=== PATIENT | male | born 1935 | race Caucasian/White ===

== ENCOUNTER 2017-07-30 00:54 | Inpatient (IN) | payer OTHER, BC ==
--- NOTE | 2017-07-30 01:10 | EDPHY ---
H & P Stated Complaint: cough and weakness, fall tonight out of bed unable to get up HPI/ROS: Chief Complaint: Nausea, malaise, confusion HPI: 82-year-old male with a history of hypertension called EMS for a lift assist. On EMS arrival the patient is noted to be complaining of nausea malaise. He was unable to stand on his own. He has had a nonproductive cough for the last week. He was seen by fire department yesterday on from his home with no complaints. Denies hitting his head. States that she remembers early over falling out of bed any could not get up. Patient is mildly confused and is not oriented to date at this time, he thinks this May 2014. No headache. No weakness. Some nausea but no vomiting. No diarrhea. ROS: 10 point Review of Systems is negative except as noted in the HPI. PMH: Hypertension Social History: No smoking, no alcohol, no recreational drug use Family History: non-contributory Physical Exam: Gen: Awake, Alert, mildly disoriented HEENT: Nose: no rhinorrhea Eyes: PERRLA, EOMI Mouth: Moist mucosa dry mucosa Neck: Supple, no JVD Chest: nontender, decreased air movement no focal rhonchi Heart: S1, S2 normal, no murmur, tachycardic Abd: Soft, non-tender, no guarding Back: no CVA tenderness, no midline tenderness Ext: no edema, non-tender Skin: no rash Neuro: CN II-XII intact, Sensation grossly intact, Strength 5/5 in bilateral upper and lower extremities - Medical/Surgical History Hx Asthma: No Hx Chronic Respiratory Disease: No Hx Diabetes: No Hx Cardiac Disease: Yes Hx Renal Disease: No Hx Cirrhosis: No Hx Alcoholism: No Hx HIV/AIDS: No Hx Splenectomy or Spleen Trauma: No Other PMH: HTN, dementia - Social History Smoking Status: Never smoked Constitutional: Initial Vital Signs Temperature (C) 37.4 C 07/30/17 01:04 Heart Rate 114 H 07/30/17 01:04 Respiratory Rate 18 07/30/17 01:04 Blood Pressure 213/102 H 07/30/17 01:04 O2 Sat (%) 92 07/30/17 01:04 O2 Delivery Mode Room Air Allergies/Adverse Reactions: Penicillins Allergy (Verified 10/03/09 19:55) Home Medications: Medication Instructions Recorded Cerefolin Caplet 07/30/17 Donepezil HCl 07/30/17 Lisinopril 07/30/17 Memantine HCl 07/30/17 Vayacog Capsules 07/30/17 Medical Decision Making - Diagnostics Imaging Results: CT scan of the brain shows no acute process per Dr. Rivera, chest x-ray is lid but shows no obvious gross focal infiltrates. Imaging: Discussed imaging studies w/ house calls nurse practitioner Radiologist, I viewed and interpreted images myself ED Course/Re-evaluation: 82-year-old male with new Mayur weakness small able to stand status post falling out of bed. He is mildly confused. Initially very hypertensive. CT scan of the brain is negative. He has no leukocytosis but does have a left shift. Lactate is 1.5. Patient is positive for influenza A. Chest x-ray is limited because he is unable to stand. Case discussed with , hospitalist. She will admit for further care. - Data Points Laboratory Results: Laboratory Results 07/30/17 00:05 07/30/17 00:05 07/30/17 07/30/17 07/30/17 01:16 01:16 00:05 WBC RBC Hgb Hct MCV MCH MCHC RDW Plt Count MPV Neut % (Auto) Lymph % (Auto) [place] % (Auto) Eos % (Auto) Baso % (Auto) Nucleat RBC Rel Count Absolute Neuts (auto) Absolute Lymphs (auto) Absolute Monos (auto) Absolute Eos (auto) Absolute Basos (auto) Absolute Nucleated RBC Immature Gran % Immature Gran # PT 14.3 SEC SEC (12.0-15.0) INR 1.09 (0.83-1.16) APTT 25.2 SEC SEC (23.0-38.0) VBG Lactic Acid 1.5 mmol/L mmol/L (0.7-2.1) Sodium Potassium Chloride Carbon Dioxide Anion Gap BUN Creatinine Estimated GFR Glucose Calcium Total Bilirubin Nasal Influenza A PCR FLU A DETECTED (NEGATIVE) Nasal Influenza B PCR NEGATIVE FOR FLU B (NEGATIVE) 07/30/17 07/30/17 00:05 00:05 WBC 6.64 10^3/uL 10^3/uL (3.80-9.50) RBC 4.66 10^6/uL 10^6/uL (4.40-6.38) Hgb 14.8 g/dL g/dL (13.7-17.5) Hct 42.4 % % (40.0-51.0) MCV 91.0 fL fL (81.5-99.8) MCH 31.8 pg pg (27.9-34.1) MCHC 34.9 g/dL g/dL (32.4-36.7) RDW 12.9 % % (11.5-15.2) Plt Count 116 10^3/uL L 10^3/uL (150-400) MPV 8.8 fL fL (8.7-11.7) Neut % (Auto) 83.8 % H % (39.3-74.2) Lymph % (Auto) 7.4 % L % (15.0-45.0) [place] % (Auto) 6.0 % % (4.5-13.0) Eos % (Auto) 1.7 % % (0.6-7.6) Baso % (Auto) 0.3 % % (0.3-1.7) Nucleat RBC Rel Count 0.0 % % (0.0-0.2) Absolute Neuts (auto) 5.57 10^3/uL 10^3/uL (1.70-6.50) Absolute Lymphs (auto) 0.49 10^3/uL L 10^3/uL (1.00-3.00) Absolute Monos (auto) 0.40 10^3/uL 10^3/uL (0.30-0.80) Absolute Eos (auto) 0.11 10^3/uL 10^3/uL (0.03-0.40) Absolute Basos (auto) 0.02 10^3/uL 10^3/uL (0.02-0.10) Absolute Nucleated RBC 0.00 10^3/uL 10^3/uL (0-0.01) Immature Gran % 0.8 % % (0.0-1.1) Immature Gran # 0.05 10^3/uL 10^3/uL (0.00-0.10) PT INR APTT VBG Lactic Acid Sodium 140 mEq/L mEq/L (134-144) Potassium 4.4 mEq/L mEq/L (3.5-5.2) Chloride 102 mEq/L mEq/L (97-110) Carbon Dioxide 25 mEq/l mEq/l (22-31) Anion Gap 13 mEq/L mEq/L (8-16) BUN 17 mg/dL mg/dL (7-23) Creatinine 1.3 mg/dL mg/dL (0.7-1.3) Estimated GFR 53 Glucose 153 mg/dL H mg/dL (70-100) Calcium 8.9 mg/dL mg/dL (8.5-10.4) Total Bilirubin 0.9 mg/dL mg/dL (0.1-1.4) Nasal Influenza A PCR Nasal Influenza B PCR Medications Given: Discontinued Medications Sodium Chloride (Ns) 1,000 mls @ 3,000 mls/hr IV ONCE ONE Stop: 07/30/17 01:55 Last Admin: 07/30/17 01:59 Dose: 1,000 mls Departure - Departure Disposition: [facility] Inpatient Acute Clinical Impression: Influenza A Condition: Fair Referrals: Patient,NotPresent [Primary Care Provider] - As per Instructions
[2017-07-30 01:15] LABS: PLATELET COUNT 116 10^3/uL (150-400)
[2017-07-30 01:24] LABS: INR 1.09 (0.83-1.16); PROTIME(PATIENT) 14.3 SEC (12.0-15.0)
[2017-07-30] MEDS ORDERED: NS 1,000 ML IV ONE (01:36)
[2017-07-30] MEDS ORDERED: OSELTAMIVIR PHOSPHATE 75 MG CAP PO ONE (02:14)
[2017-07-30] MEDS ORDERED: ONDANSETRON 4 MG/2 ML VIAL IVP PRN (03:08)
--- NOTE | 2017-07-30 05:43 | GHP ---
[f rep st] HISTORY AND PHYSICAL DATE OF ADMISSION: 07/30/2017 SOURCE: Patient is able to provide majority of the history, appears fairly reliable. EMR reviewed a nd case discussed with ED provider. CHIEF COMPLAINT: Malaise and cough. HISTORY OF PRESENT ILLNESS: This is a very pleasant 82-year-old gentleman with past medical history significant for hypertension and dementia, who presents to the emergency department today with compla ints of several days of nonproductive cough, nausea, malaise, and generalized weakness. The patient was unable to stand and EMS was called. Apparently yesterday the Fire Department was also called. T he patient denies any subjective fevers, chills, or sweats. He denies any rhinorrhea, sore throat. Some nausea without vomiting or diarrhea. Patient with unknown sick contacts. He did not receive hi s flu shot this season. Patient with reported increased confusion at home from his baseline. He was only oriented to self up on arrival to the emergency department. Currently, patient oriented to person and place, but quite f atigued. REVIEW OF SYSTEMS: GENERAL: Negative for subjective fevers, chills or sweats. SKIN: No rashes or sores. ENT: Patient denies any rhinorrhea or sore throat. EYES: Patient does wear readers. No ac jana changes in vision. CV: No chest pain, palpitations. RESPIRATORY: Cough that is nonproductive. The patient denies any shortness of breath. GI: Nausea without any vomiting, diarrhea or abdomina l pain. : No dysuria or hematuria. MUSCULOSKELETAL: Patient denies any joint pains or myalgias at this time. NEURO: Patient denies any headache. No numbness and tingling. PSYCH: Patient repor ts some memory decline. No anxiety, depression. Remainder of review of systems is negative except as noted above. ALLERGIES: To penicillin. HOME MEDICATIONS: As per EMR, memantine, lisinopril, donepezil, Zaroxolyn, Vayacog capsule. PAST MEDICAL HISTORY: Significant for hypertension, dementia. PAST SURGICAL HISTORY: Patient denies. FAMILY HISTORY: Patient reports family members are all healthy. No history of diabetes, hypertensio n. Son lives in town, is also healthy. SOCIAL HISTORY: Patient is , lives with his . He does not smoke or utilize any illicit d rugs or marijuana. He does drink occasional alcohol. The patient reports that he has a gin and suzanne c every evening, but last drink was approximately 4 days ago. Denies any tremors. COR STATUS: Full. PHYSICAL EXAM: VITAL SIGNS: Initial vitals upon arrival to the emergency department blood pressure 213/102, heart rate 114, respiratory rate 18, O2 saturation 92% on room air with a temperature 37.4. Current vitals blood pressure 191/96, heart rate 102, respiratory rate is 28, O2 saturation is 91, t emperature is 37.5 on room air, declined to 90%. GENERAL: No acute distress. Pleasant, elderly, fr ail-appearing gentleman is lying quietly in bed. He does appear acutely ill, flushed, but not diapho retic and nontoxic. He is still alert and oriented and interactive. HEAD: Normocephalic, atraumati c. EYES: Extraocular muscles grossly intact. Patient with some mild bilateral conjunctival injecti on without any drainage. Pupils equal, round, with decreased reactivity to light bilaterally but sym metric. No scleral icterus. ENT: Mucous membranes appear slightly dry. No oropharyngeal erythema or exudates. NECK: Supple. Trachea midline. CV: Slightly tachycardic in the 100s with regular ra te and rhythm. No murmurs, rubs, or gallops appreciated. RESPIRATORY: Lungs clear to auscultation bilaterally. No wheezes, rales, or rhonchi appreciated. Patient with some increased respiratory rat e, but in no acute distress, and no use of accessory muscles. ABDOMEN: Soft with positive bowel segun nds. Nontender to palpation. No rebound, guarding, or masses appreciated. : No suprapubic tende rness to palpation. No Dozier in place. EXTREMITIES: Patient without any cyanosis, clubbing, or cecy ma appreciated. Patient with 1+ pedal pulses bilaterally. NEURO: Grossly nonfocal. No facial droo ping. Limited secondary to patient's fatigue and malaise. PSYCH: The patient is not agitated. He i s fatigued and pleasant. Mood and affect are appropriate. Patient is oriented to person and place, but intermittently, as he is falling asleep, will mumble inappropriate answers to questions, but upon repetition, answers appropriately. SKIN: Flushed. No apparent rashes or sores on exposed extremit ies. LABORATORY STUDIES: WBC 6.64, H and H 14.8 and 42.4, platelet count is 116. No bands. PT is 14.3, INR 1.09, PTT is 25.2, lactic acid 1.5. Sodium 140, potassium 4.4, chloride 102, CO2 is 25, anion ga p 13, BUN 17, creatinine 1.3, GFR 53, glucose 133, calcium 8.9, total bilirubin 0.9. Flu A positive. Chest x-ray, image reviewed myself, report is pending. Negative for any acute infiltrates. Poor ins piratory effort. Hiatal hernia, imaging is limited. Per ED provider, patient is unable to stand or sit up for any imaging. CT head, image and preliminary report reviewed showing chronic atrophy and white matter changes, noth ing acute. ASSESSMENT AND PLAN: Pleasant 82-year-old gentleman who presents with complaints of generalized weak ness, fatigue, inability to stand, some confusion, and cough. 1. Flu A positive. The patient has received Tamiflu. He has some acute renal insufficiency on motor power connector cruz kidney insufficiency and will plan to renally dose his medications at this time. The patient gerardo l continue to receive supportive care. His oxygen saturation has declined slightly, but he is now tr amy to fall asleep. We will place patient on some low-dose oxygen to maintain sats greater than 90. 2. Sepsis, without meeting severe criteria, due to the flu. Patient is status post one 30 mL/kg marlene us in the emergency department. Receiving Tamiflu as above. Will monitor respiratory rate. No evid ence of infiltrates at this time. Will monitor closely now that patient is status post 3 L of IV flu id. 3. Accelerated hypertension. The patient is normally taking lisinopril, but we will hold this secon shilpi to history of acute kidney injury. The patient appears above his baseline, 1.1. But, however, the laboratory studies we have are from several years back or this may be close to his new baseline. Hydralazine will be available p.r.n. for elevated blood pressures greater than 180/100. 4. Acute kidney injury on chronic kidney disease stage 3. The patient is receiving IV fluids as abo ve. We will continue supplementation. Repeat a BMP tomorrow. 5. Thrombocytopenia, likely related to acute illness and influenzae. We will continue to monitor. No evidence of active bleeding. 6. Confusion. The patient does appear to be slowly improving. I am not sure of his baseline. He i s on Namenda and Aricept for his history of dementia and has just left for the evening, we will need to follow up and clarify it. 7. Generalized weakness. Patient is unable to stand independently and requiring increased assistanc e. PT, OT will be consulted. 8. Hyperglycemia. This is a nonfasting lab. We will plan to repeat in the morning. No previous hi story of diabetes. We will allow permissive hyperglycemia in this pleasant elderly frail gentleman. 9. Fluids, electrolyte, nutrition. Patient will continue to receive some gentle IV fluid hydration status post 3 L bolus in the emergency department. Electrolytes will be monitored and replaced if ne eded. Diet will be advanced as tolerated. 10. Prophylaxis. Sequential compression devices and heparin. 11. Cor status is full. 12. Disposition. The patient has been admitted to inpatient status in the hospital. Given the shane rity of his malaise, generalized weakness, confusion, and acute kidney injury anticipate he will requ alejandrina a 2 midnight stay. /[id number]/MODL
[2017-07-30] MEDS: OSELTAMIVIR 6 MG/ML UDSYR PO SCH ×2 (08:14→17:33)
[2017-07-30] MEDS: ENOXAPARIN 40 MG/0.4 ML SYR SC SCH (08:14)
[2017-07-30] MEDS: ACETAMINOPHEN 325 MG TAB PO PRN (09:08)
--- NOTE | 2017-07-30 09:14 | HOSPPROG ---
Hospitalist Progress Note Assessment/Plan: Patient is an 82-year-old gentleman who presented to the emergency room with malaise and cough. He was extremely weak and unable to stand so the fire department was called. Today is my 1st encounter with the patient. Chart reviewed. * influenza a -on Tamiflu * hypertension -resumed his lisinopril * acute kidney injury on chronic kidney disease -will recheck labs in the morning * thrombocytopenia * dementia -resume the patient's home med * plan. Patient told me that he is feeling extremely sick today. Says that he has body aches all over. Will come and re-evaluate him later today. Will continue IV fluids at this time until he is taking in more intake Subjective: Thomas said he is feeling poorly and does not want to get out of bed Objective: Vital Signs Temp Pulse Resp BP Pulse Ox 37.8 C 99 19 174/99 H 92 07/30/17 09:09 07/30/17 07:51 07/30/17 07:51 07/30/17 07:51 07/30/17 07:51 07/29/17 07/30/17 07/31/17 05:59 05:59 05:59 Intake Total 1000 Output Total 0 Balance 1000 PT 14.3 SEC (12.0-15.0) 07/30/17 00:05 INR 1.09 (0.83-1.16) 07/30/17 00:05 - Physical Exam Constitutional: uncomfortable Ears, Nose, Mouth, Throat: hearing normal Cardiovascular: regular rate and rhythym Respiratory: no respiratory distress Skin: warm Neurologic: AAOx3 Psychiatric: interacting appropriately, not anxious ICD10 Worksheet Patient Problems: Problems Problem Status Onset Influenza A Acute
--- NOTE | 2017-07-30 10:37 | ASMTCASEMG ---
Living Arrangements What is your living Answers: With Spouse arrangement? Who do you live with? Type Of Residence What kind of residence do Answers: House you live in? Discharge Plan Comments Coordination Status Comments Notes: Patient is an 82yo male who was admitted due to FluA positive, sepsis, accelerated hypertension and acute kidney injury. PT has been ordered. D/C needs TBD. CM will follow. Date Signed: 07/30/2017 10:37 AM Electronically Signed By:Faviola Stevens LCSW
[2017-07-30] MEDS: LISINOPRIL 10 MG TAB PO SCH (10:45)
[2017-07-30] MEDS: LR 1,000 ML IV SCH (18:25)
[2017-07-30] MEDS ORDERED: NON-FORMULARY NEW DRUG (Donepezil Hcl [Aricept] 10 MG) PO SCH (21:00)
[2017-07-30] MEDS ORDERED: MEMANTINE HCL PO SCH (21:00)
[2017-07-30] MEDS: DONEPEZIL HCL 5 MG TAB PO SCH (21:23)
[2017-07-30] MEDS: MEMANTINE HCL 5 MG TAB PO SCH (21:23)
[2017-07-31] MEDS: hydrALAZINE 20 MG/ML VIAL IVP PRN ×2 (04:01→11:58)
[2017-07-31 05:16] LABS: PLATELET COUNT 94 10^3/uL (150-400)
[2017-07-31] MEDS: ENOXAPARIN 40 MG/0.4 ML SYR SC SCH (08:49)
[2017-07-31] MEDS: LISINOPRIL 10 MG TAB PO SCH (08:49)
[2017-07-31] MEDS: OSELTAMIVIR PHOSPHATE 75 MG CAP PO SCH ×2 (08:49→17:42)
[2017-07-31] MEDS: LR 1,000 ML IV SCH ×2 (08:55→21:28)
--- NOTE | 2017-07-31 10:16 | ASMTCMCOM ---
CM Note CM Note Notes: PT is recommending home independent with no needs. CM available should D/C needs arise. Date Signed: 07/31/2017 10:16 AM Electronically Signed By:Faviola Stevens LCSW
--- NOTE | 2017-07-31 10:19 | PDMN ---
Medical Necessity Medical necessity: est los>2mn for influenza A, sepsis, accelerated htn, DIEUDONNE, thrombocytopenia, severe malaise, weakness and confusion; admit for IVF, electrolyte monitoring and PT/OT; hx htn; per order and H&P 07/30/17
--- NOTE | 2017-07-31 11:38 | HOSPPROG ---
Hospitalist Progress Note Assessment/Plan: Patient is an 82-year-old gentleman who presented to the emergency room with malaise and cough. He was extremely weak and unable to stand so the fire department was called. * influenza a -on Tamiflu -patient is still feeling poorly this morning says he is too weak to be discharged home *weakness -PT and OT recommend SNF * hypertension -resumed his lisinopril -blood pressures remained quite elevated have added Norvasc daily * acute kidney injury on chronic kidney disease -will recheck labs in the morning * thrombocytopenia * dementia -resume the patient's home med * plan. Will have PT evaluate him and see how he is doing. Will also add nebulizer treatments. Patient's lungs are quite congested. I have called and updated the patient's on the plan of care. Her number is [phone] Subjective: Thomas said he is feeling 'awful'. Objective: Vital Signs Temp Pulse Resp BP Pulse Ox 36.7 C 75 19 195/105 H 96 07/31/17 09:00 07/31/17 09:00 07/31/17 09:00 07/31/17 09:00 07/31/17 09:00 Laboratory Results 07/31/17 05:07 07/31/17 05:07 07/30/17 07/31/17 08/01/17 05:59 05:59 05:59 Intake Total 1000 578 Output Total 0 625 Balance 1000 -47 PT 14.3 SEC (12.0-15.0) 07/30/17 00:05 INR 1.09 (0.83-1.16) 07/30/17 00:05 - Physical Exam Constitutional: chronically ill appearing, uncomfortable Eyes: PERRL Ears, Nose, Mouth, Throat: hearing normal Cardiovascular: regular rate and rhythym Respiratory: no respiratory distress (lung sounds very tight in the bases) Skin: warm Musculoskeletal: generalized weakness Psychiatric: interacting appropriately ICD10 Worksheet Patient Problems: Problems Problem Status Onset Influenza A Acute
[2017-07-31] MEDS: IPRATROPIUM/ALBUTEROL 3 ML DEYVIAL IH SCH ×2 (12:07→17:07)
[2017-07-31] MEDS: MEMANTINE HCL 5 MG TAB PO SCH (21:19)
[2017-07-31] MEDS: DONEPEZIL HCL 5 MG TAB PO SCH (21:19)
[2017-08-01] MEDS: IPRATROPIUM/ALBUTEROL 3 ML DEYVIAL IH SCH ×4 (00:07→16:23)
[2017-08-01] MEDS: hydrALAZINE 20 MG/ML VIAL IVP PRN ×2 (05:12→20:46)
[2017-08-01] MEDS: ACETAMINOPHEN 325 MG TAB PO PRN (08:49)
[2017-08-01] MEDS: ENOXAPARIN 40 MG/0.4 ML SYR SC SCH (08:49)
[2017-08-01] MEDS: LISINOPRIL 10 MG TAB PO SCH (08:50)
[2017-08-01] MEDS: OSELTAMIVIR PHOSPHATE 75 MG CAP PO SCH ×2 (08:50→17:27)
--- NOTE | 2017-08-01 10:23 | HOSPPROG ---
Hospitalist Progress Note Assessment/Plan: Patient is an 82-year-old gentleman who presented to the emergency room with malaise and cough. He was extremely weak and unable to stand so the fire department was called. * influenza a -on Tamiflu -patient is still feeling poorly this morning says he is too weak to be discharged home *weakness -PT and OT recommend SNF * hypertension -resumed his lisinopril -blood pressures remained quite elevated have added Norvasc daily w improvement * acute kidney injury on chronic kidney disease -will recheck labs in the morning * thrombocytopenia * dementia -resume the patient's home med * plan. SNF tomorrow Subjective: Thomas is feeling tired, but able to get oob, ate breakfast. Objective: Vital Signs Temp Pulse Resp BP Pulse Ox 36.8 C 84 16 145/90 H 92 08/01/17 08:00 08/01/17 08:00 08/01/17 08:00 08/01/17 08:50 08/01/17 08:00 Laboratory Results 07/31/17 05:07 07/31/17 05:07 07/31/17 08/01/17 08/02/17 05:59 05:59 05:59 Intake Total 578 250 Output Total 625 2550 Balance -47 -2300 PT 14.3 SEC (12.0-15.0) 07/30/17 00:05 INR 1.09 (0.83-1.16) 07/30/17 00:05 - Physical Exam Constitutional: no apparent distress, appears nourished, uncomfortable Eyes: PERRL Ears, Nose, Mouth, Throat: hearing normal Cardiovascular: regular rate and rhythym Respiratory: no respiratory distress Skin: warm Musculoskeletal: generalized weakness Neurologic: AAOx3 Psychiatric: interacting appropriately, poor memory ICD10 Worksheet Patient Problems: Problems Problem Status Onset Influenza A Acute
--- NOTE | 2017-08-01 10:38 | ASMTCMCOM ---
CM Note CM Note Notes: Spoke w/pt re; dc snf. Pt would like [facility], referral sent and Jas notified. Also spoke with who would like to use transportation service at time of discharge, she is ok with $50 transportation fee. DC Plan: SNF Date Signed: 08/01/2017 10:37 AM Electronically Signed By:Erica Henry RN
--- NOTE | 2017-08-01 16:53 | ASMTCMCOM ---
CM Note CM Note Notes: Spoke with Jas ([phone]), at [facility]; pt accepted; bed available tomorrow at noon. Updated pt & his Ni ([phone]). CM will continue to follow. Date Signed: 08/01/2017 04:53 PM Electronically Signed By:Purnima Rodriguez RN
[2017-08-01] MEDS: MEMANTINE HCL 5 MG TAB PO SCH (20:40)
[2017-08-01] MEDS: DONEPEZIL HCL 5 MG TAB PO SCH (20:41)
[2017-08-02] MEDS: IPRATROPIUM/ALBUTEROL 3 ML DEYVIAL IH SCH ×3 (00:54→11:01)
[2017-08-02 08:02] VITALS: O2SAT 92
[2017-08-02] MEDS: LISINOPRIL 10 MG TAB PO SCH (09:28)
[2017-08-02] MEDS: OSELTAMIVIR PHOSPHATE 75 MG CAP PO SCH (09:29)
[2017-08-02] MEDS: ENOXAPARIN 40 MG/0.4 ML SYR SC SCH (09:32)
[2017-08-02 12:06] VITALS: BP 144/85; PULSE 100; RESP 18; TEMP 98.2
--- NOTE | 2017-08-02 12:20 | PDIAF ---
- Diagnosis Diagnosis: flu a Code Status: Full Code - Medication Management Discharge Medications: Medications to Continue on Transfer Donepezil HCl [Aricept] 10 mg PO HS 07/30/17 [Last Taken Unknown] Lisinopril [Zestril 10 mg (*)] 10 mg PO DAILY 07/30/17 [Last Taken Unknown] Memantine HCl [Namenda 10 mg] 20 mg PO HS 07/30/17 [Last Taken Unknown] Phospserin/[place]-3/Dha/Epa [Vayacog Capsules] 1 each PO DAILY 07/30/17 [Last Taken Unknown] l-Mefol/A-Cyst/Meb12/Algal Oil [Cerefolin Nac Caplet] 1 each PO DAILY 07/30/17 [ Last Taken Unknown] Acetaminophen [Tylenol 325mg (*)] 650 mg PO Q4HRS PRN tab 08/02/17 [Last Taken Unknown] Oseltamivir Phosphate [Tamiflu 75 mg (*)] 75 mg PO BIDMEAL cap 08/02/17 [Last Taken Unknown] amLODIPine BESYLATE [Norvasc 2.5 mg (*)] 2.5 mg PO DAILY tab 08/02/17 [Last Taken Unknown] Discharge Medications: Refer to the Discharge Home Medication list for PRN reason. PICC Care - Routine: N/A - Orders Services needed: Registered Nurse, Physical Therapy, Occupational Therapy Isolation Type: Droplet Isolation Diet Recommendation: no restrictions on diet - Follow Up Care Current Providers and Referrals: Patient,NotPresent [Primary Care Provider] - As per Instructions
--- NOTE | 2017-08-02 14:58 | GDS ---
[f rep st] DISCHARGE SUMMARY DISCHARGE DIAGNOSES: 1. Influenza A. 2. Weakness. 3. Hypertension. 4. Acute kidney injury, on chronic kidney disease. 5. Thrombocytopenia. 6. Dementia. STUDIES AND PROCEDURES DONE: 1. CT of the head. 2. Chest x-ray. PHYSICAL EXAM: GENERAL: The patient is alert. VITAL SIGNS: Afebrile at 36.8, pulse is 100, respir atory rate is 18, blood pressure is 144/85. He is saturating 92% on room air. I have seen and evalu ated the patient on the day of discharge. HOSPITAL COURSE: The patient is an 82-year-old male, who presented to the emergency room with compla ints of malaise and cough. He was evaluated and diagnosed with: 1. Influenza A. He was initiated on Tamiflu and hydration. He is feeling better today prior to dis position. 2. Weakness. He will require physical therapy and occupational therapy in the outpatient setting. He will require half-way facility rehabilitation. 3. Hypertension. His lisinopril has been resumed. He does have labile intermittent hypertension. Norvasc has been added to his daily regimen and further antihypertensive medications may be required in the outpatient setting. He has received hydralazine p.r.n. during this hospitalization, which has worked well for him. Recommend outpatient hydralazine if needed. 4. Acute kidney injury on chronic kidney disease. This does appear to be stable prior to dispositio n. His creatinine is 1, after receiving significant hydration. 5. Thrombocytopenia. This is in the setting of acute infection. 6. Dementia. The patient's mentation is likely at baseline. DISPOSITION: The patient will be discharged to [facility] for further rehabilitation and streng thening. There are no pending studies. DISCHARGE MEDICATIONS: Please refer to EMR form. I have not adjusted the patient's previously presc ribed home medications to the best of my knowledge, other than the addition of Norvasc and Tamiflu. FOLLOWUP: Will be with his primary care physician. I spent greater than 35 minutes in the care, coordination, and management of the patient's dispositio n. /[id number]/MODL
--- NOTE | 2017-08-02 15:35 | ASDISCHSUM ---
Discharge Information Plan Status:SNF Medically Cleared to Leave: Discharge Date:08/02/2017 02:09 PM D/C Disposition:Intermediate Facility ADT D/C Disposition:Intermediate Facility Projected Discharge Date:08/02/2017 11:00 AM Transportation at D/C: Discharge Delay Reason: Follow-Up Date:08/02/2017 11:00 AM Discharge Slot: Final Diagnosis: Placement Information Referral Type:*[facility]NF Referral ID:[id number] Provider Name:[facility] Address 1:[address] Address 2: City:[place]: State:[place] Patient Contact Information Contact Name:ELA Relationship: Address:[address] [place] [address] City:[place] Alternate Phone: State/Zip Code:[place] [address] Email: Financial Information Financial Class: Primary Plan Desc:MEDICARE INPATIENT Primary Plan Number:[id number] Secondary Plan Desc:[facility] Secondary Plan Number:[id number] Assessment Information [facility] Initial CM Assessment Living Arrangements What is your living Answers: With Spouse arrangement? Who do you live with? Type Of Residence What kind of residence do Answers: House you live in? Discharge Plan Comments Coordination Status Comments Notes: Patient is an 82yo male who was admitted due to FluA positive, sepsis, accelerated hypertension and acute kidney injury. PT has been ordered. D/C needs TBD. CM will follow. Date Signed: 07/30/2017 10:37 AM Electronically Signed By:Faviola Stevens LCSW [facility] CM Progress Note CM Note CM Note Notes: PT is recommending home independent with no needs. CM available should D/C needs arise. Date Signed: 07/31/2017 10:16 AM Electronically Signed By:Faviola Stevens LCSW [facility] CM Progress Note CM Note CM Note Notes: Spoke w/pt re; dc snf. Pt would like [facility], referral sent and [facility] notified. Also spoke with who would like to use transportation service at time of discharge, she is ok with $50 transportation fee. DC Plan: SNF Date Signed: 08/01/2017 10:37 AM Electronically Signed By:Erica Henry RN [facility] CM Progress Note CM Note CM Note Notes: Spoke with Jas ([phone]), at [facility]; pt accepted; bed available tomorrow at noon. Updated pt & his Ni ([phone]). CM will continue to follow. Date Signed: 08/01/2017 04:53 PM Electronically Signed By:Purnima Rodriguez RN Case Management Discharge Plan Note Case Management Discharge Discharge Order Complete? Answers: Yes Patient to Obtain Answers: via [facility] Transportation Arranged Answers: Other Notes: [facility] wheelchair van Transport will Pick (Date 08/02/2017 01:30 PM & Time) Faxed Final Orders Answers: Yes Family Notified Answers: Yes Discharge Comments Notes: Patient discharged to [facility]. Orders sent to facility. Transport through [facility] who will bill SNF. I spoke with patient's Mina who agrees to discharge plan. JESSICA Guzmán will call report. Date Signed: 08/02/2017 12:39 PM Electronically Signed By:Arlene Hines RN Intervention Information Intervention Type:*IM-Signed Date of Service:08/02/2017 12:41 PM Patient Type:Inpatient Staff Member:Patti Richmond Hours: Discipline: Severity: Comment:
== END 2017-08-02 14:09 | DRG 194 ==
LOC: EDUNIT# → F3E 03:12
PROVIDERS: ADMIT Family Medicine; ATTEND Family Medicine
DX: J10.1 Influenza due to other identified influenza virus with other respiratory manifestations (principal); N17.9 Acute kidney failure, unspecified; I12.9 Hypertensive chronic kidney disease with stage 1 through stage 4 chronic kidney disease, or unspecified chronic kidney disease; N18.3 Chronic kidney disease, stage 3 (moderate); D69.6 Thrombocytopenia, unspecified; F03.90 Unspecified dementia, unspecified severity, without behavioral disturbance, psychotic disturbance, mood disturbance, and anxiety; Z88.0 Allergy status to penicillin
CPT/HCPCS: 97116-GP; 97161-GP; 97530-GP; G8978-GP-CJ; G8979-GP-CI; J0360; J1650; J2405